=== PATIENT | female | born 1975 | race Caucasian/White ===

== ENCOUNTER 2021-04-25 10:57 | Outpatient (CLI) | payer MEDICAID, SELFPAY ==
--- NOTE | ~2021-04-25 | US_ITS ---
EXAMINATION: US pelvic complete w TV DATE: 04/25/2021 11:47 INDICATION: Excessive and frequent menstruation TECHNIQUE: Multiple transabdominal and endovaginal sonographic images of the pelvis were obtained. COMPARISON: None. FINDINGS: The uterus measures 8.9 x 5.4 x 4.0 cm. A nabothian cyst is noted in the cervix.. There ambreen ears to be a small myometrial calcification adjacent to the endometrial complex. The endometrial comp mariana measures 4 mm. The right ovary measures 2.8 x 2.1 x 1.8 cm. The left ovary measures 2.5 x 2.3 x 1 .7 cm. There is normal vascular flow in the ovaries. There is no free fluid in the pelvis. IMPRESSION: 1. No sonographic correlate for the patient's symptoms. Reviewed, dictated and finalized at location A. UTIVE ADMINISTRATIVE ASSISTANT
== END 2021-04-25 10:58 | disposition home or self-care (01) ==
LOC: ANHIMG 10:59
PROVIDERS: PCP Physician Assistant; Visit Provider Nurse Practitioner
DX: N92.1 Excessive and frequent menstruation with irregular cycle (principal)
CPT/HCPCS: 76830; 76856

== ENCOUNTER → 2021-05-02 02:20 | Outpatient (CLI) | payer MEDICAID, SELFPAY ==
[2021-05-02 11:50] LABS: SARS-CoV-2 RNA PCR Negative
== END ==
PROVIDERS: PCP Physician Assistant; Visit Provider Obstetrics & Gynecology Gynecology
DX: Z01.812 Encounter for preprocedural laboratory examination (principal); Z20.822 Contact with and (suspected) exposure to COVID-19
CPT/HCPCS: C9803; U0003; U0005

== ENCOUNTER 2021-05-05 00:54 | Day surgery (SDC) | payer MEDICAID, SELFPAY ==
[2021-05-01 09:21] VITALS: BMI 26.3
--- NOTE | 2021-05-01 09:30 | PC.NURSE ---
Report to the Outpatient Waiting Room, entrance under the green pavilion located off [facility], at time 0800 on date 05/05/21. OR Time: 1000. - You and your visitor will be asked a series of questions to screen for COVID 19 for your protection. - A mask is required within the hospital. One visitor will be allowed to accompany the patient into the hospital. Patients visitor will be instructed to remain with patient at all times or leave the building. We will allow the visitor to come back to the postoperative area when patient is ready. Preoperative COVID Testing Requirements: COVID TEST 05/02 @ 0930 No COVID Test needed if: (proof is required; if not received patient will have Rapid Test prior to entry) - Patient has received COVID Vaccine at least 14 days prior to procedure date or - Patient has positive COVID test result within last 90 days of surgery date. COVID Test needed if above criteria is not met If not COVID vaccinated a COVID test must be conducted within 72 hours of surgery and patient is asked to isolate self from time of testing until procedure. You will go to the [employer] [facility] for your COVID testing. The [employer] [facility] site is located at the corner of [address] [facility]. You will only be called if COVID results are positive and your surgeon may reschedule your elective surgery date. Patients may have clear liquids (water, carbonated beverages, clear teas, apple juice) until 3 hours prior to surgery with a maximum of 20 ounces. - No food from midnight until time of surgery Take the following medications with a SIP of water the morning of surgery: CITALOPRAM Medications to discontinue per physician: N/A Date to take last dose: N/A Please no make-up, nail welsh, hairspray, perfume, deodorant, or body powder the day of surgery. No jewelry (including any body piercings) or valuables the day of surgery, leave them at home. Please take a shower or bath the night before, or the morning of, surgery with an antibacterial soap. Wear comfortable, loose fitting clothing. - Jewelry must be removed prior to entering the operating room. Rings and piercings that are not removed may be cut off. - The hospital will not accept responsibility for valuables. - Please leave all valuables, including medications, at home the day of surgery. If you are going home after surgery, a licensed driver's education instructor must drive you home. - NO public transportation without another adult. - We recommend that an adult stay with you for 24 hours following discharge. - We also recommend that you do not drive, make important decision, drink alcoholic beverages, or take any drugs that were not prescribed by your health care provider for at least 24 hours after your discharge time. Follow any additional instructions given to you from your surgeon. Telephone instructions given to SUDHEER GIBBONS and asked if any additional questions and then verbalized understanding. Patient advised to call surgeon office or pre surgery nurse liaison [phone] if any additional questions.
--- NOTE | 2021-05-05 07:43 | WPDHPUPDATE1 ---
History and Physical Update Update Date/Time: 05/05/21 07:43 History and Physical has been reviewed, including an updated exam of the patient. There are NO changes in the patient's condition. Risks, benefits, and alternatives have been discussed and questions answered. Patient agrees to proceed with procedure.
--- NOTE | 2021-05-05 07:43 | PM.HPGS ---
History of Present Illness History of Present Illness Consent: Risks, benefits, and alternatives have been discussed and questions answered. Patient agrees to proceed with procedure. Chief complaint: menorrhagia, abnormal uterine bleeding Narrative: Renee Cervantes is a 45 year old female with a 1 year history of abnormal cycles. The patient has lost [id number] in the past year. Abnormal cycles are regular but prolonged and heavy. Pelvic ultrasound is normal and hemoglobin was 14.8. Was recommended to proceed with workup including D&C hysteroscopy. Risks of infection, bleeding, perforation, and fluid imbalance were reviewed. Possible pathology was also discussed. Patient voices understanding and agrees to proceed. Review of Systems Review of Systems: not repeated day of surgery; patient states no changes in status Constitutional: Constitutional: Reports night sweats PMFSH Past Medical History Medical History (Updated 05/05/21 @ 07:47 by Paradise Borges MD) (normal spontaneous vaginal delivery) X1 Surgical History Surgical History (Updated 05/05/21 @ 07:46 by Paradise Borges MD) History of ankle surgery History of X2 Status post appendectomy Status post tubal ligation Social History Social History Years smoked: 25 Smoking status: Current every day smoker Tobacco type: cigarettes Alcohol intake: current Alcohol use details: 2/MONTH Substance use: never Substance use type: does not use Living arrangements: with family Spiritual care concerns: No Meds Home Medications and Allergies Home Medications Medication Instructions Recorded Confirmed Type citalopram 20 mg PO DAILY 05/01/21 05/01/21 History Allergies Allergy/AdvReac Type Severity Reaction Status Date / Time No Known Allergies Allergy Unverified 05/01/21 09:20 Exam Const: General: healthy appearing and alert Orientation/consciousness: patient oriented x3 GI: GI Palp: Yes Soft to palpation, No Tenderness to palpation present (GI) and No Palpable mass present : External Female Exam: normal external appearance Speculum Exam - Vagina: normal appearance of the vagina and normal vaginal discharge Speculum Exam - Cervix: normal appearance of the cervix Bimanual exam- vagina & uterus: uterine size normal and consistency normal Bimanual Exam- Adnexa, other: normal adnexae and No adnexal tenderness Neuro: General: patient oriented x3 Assessment and Plan Assessment and plan (1) Menorrhagia: Code(s): N92.0 - Excessive and frequent menstruation with regular cycle Status: Acute Assessment and Plan: Plan to proceed with D&C hysteroscopy
[2021-05-05 08:13] VITALS: BP 126/72; PULSE 85; RESP 16; TEMP 36.1; O2SAT 100
[2021-05-05] MEDS: ACETAMINOPHEN 500 MG TABLET 1000 MG PO (08:21)
[2021-05-05] MEDS: LACTATED RINGERS 1,000 ML 30 ML IV CONT (08:32)
--- NOTE | 2021-05-05 08:56 | WPDANESEPPF ---
Anes - Initial Pre Proc Eval Procedure: Operation Date: 05/05/21 10:00 Proposed Procedures p Hysteroscopy Dilation and Curettage - Paradise Borges MD Date/Time: 05/05/21 08:56 Surgeon: Paradise Borges MD Pre Op Diagnosis: menorrhagia, abnormal uterine bleeding Patient Data Age: 45 Gender: F Height: 1.64 m Weight: 71.25 kg Last Vital Signs Temp 36.1 C L 05/05/21 08:13 Pulse 85 05/05/21 08:13 Resp 16 05/05/21 08:13 BP 126/72 05/05/21 08:13 Pulse Ox 100 05/05/21 08:13 Allergies Allergy/AdvReac Type Severity Reaction Status Date / Time No Known Allergies Allergy Unverified 05/05/21 08:19 Home Medications Medication Instructions Recorded Confirmed Type citalopram 20 mg PO DAILY 05/01/21 05/05/21 History Patient hx anesthesia problems: other (slow to awaken) Family hx anesthesia problems: none Results Review: All pre-operative results and documents have been reviewed as part of the pre-operative evaluation. [facility]LY [facility], [facility] Past Medical History Medical History Anxiety Hx of migraines Surgical History Surgical History History of ankle surgery History of X2 Status post appendectomy Status post tubal ligation Social History Social History Years smoked: 25 Smoking status: Current every day smoker Tobacco type: cigarettes Alcohol intake: current Alcohol use details: 2/MONTH Substance use: never Substance use type: does not use Living arrangements: with family Spiritual care concerns: No Anes - Eval Final PreProcedure Day of Procedure 05/05/21 08:56 Patient weight: overweight Heart: regular rate and rhythm Lungs: clear to auscultation Airway: Mallampati scale class II Neurological: alert and oriented Last oral intake: >/= 8 hours ASA classification: II Emergent: no Anesthetic plan: proceed Anesthesia type and monitoring: general GIVS and standard monitoring Results Review: All pre-operative results and documents have been reviewed as part of the pre-operative evaluation. Informed Consent: The patient's anesthetic plan and its attendant risks and benefits were discussed with the patient/family/POA. Questions were solicited and answers provided to the satisfaction of the patient/family/POA.
--- NOTE | 2021-05-05 10:04 | W.PM.PROC2 ---
Procedure Note - Detailed Date of Procedure 05/05/21 Pre-op Diagnosis menorrhagia, abnormal uterine bleeding Post-op Diagnosis same Procedure Performed D&C hysteroscopy with MyoSure resection Surgeon Paradise Borges MD Anesthesia MAC and local Findings Uterus sounds to 8cm. There is a polyp on the posterior left wall. The anterior and sidewall of the left and the anterior right are thickened. Description of Procedure The patient was taken to the operating room and placed under anesthesia in the dorsal lithotomy position. She was prepped and draped in the usual sterile fashion. [place] speculum was placed in the vagina and the cervix was grasped on the anterior lip with a tenaculum. The cervix is injected in each quadrant with 1% lidocaine. The uterus is sounded to 8cm. The diagnostic hysteroscope was placed with the stated findings. The MyoSure device is opened and placed. Under direct visualization the polyp and the thickened areas are excised. The hysteroscope was removed and the medium sharp curette used to curette the endometrium until a good uterine cry was noted in all areas all instruments are removed. Patient was taken to recovery in stable condition. Sponge, needle, and instrument counts are correct per the OR staff. Estimated Blood Loss 5 Drains No Packing No Pathology yes (Endometrial shavings and curettings) Complications No immediate complications Condition stable Disposition PACU
[2021-05-05 10:15] VITALS: BP 103/61; PULSE 93; RESP 16; O2SAT 98
[2021-05-05 10:45] VITALS: BP 103/61; PULSE 98; RESP 16
== END 2021-05-05 11:15 | disposition home or self-care (01) ==
PROVIDERS: PCP Physician Assistant; Visit Provider Obstetrics & Gynecology Gynecology
PROC: 0U5B8ZZ Destruction of Endometrium, Via Natural or Artificial Opening Endoscopic (ICD-10-PCS; CPT 58563; principal; 2021-05-05 10:00)
DX: N92.0 Excessive and frequent menstruation with regular cycle (principal); N84.0 Polyp of corpus uteri; N93.9 Abnormal uterine and vaginal bleeding, unspecified; F17.210 Nicotine dependence, cigarettes, uncomplicated; F41.9 Anxiety disorder, unspecified
CPT/HCPCS: 58558; 88305; A9270; J2250; J2405; J2704; J3010; J7030; J7120

== ENCOUNTER 2021-05-20 16:05 | Emergency (ER) | payer OTHER, SELFPAY ==
[2021-05-20 16:11] VITALS: BP 140/86; PULSE 87; RESP 12; TEMP 36.6; O2SAT 99
--- NOTE | 2021-05-20 16:20 | ED.GENADULT ---
HPI - General Adult General Chief complaint: Dental/Oral Stated complaint: Ear pain, Tooth ache Time Seen by Provider: 05/20/21 16:13 Source: patient Mode of arrival: ambulatory Limitations: no limitations History of Present Illness HPI narrative: 45 y/o female presented for c/o right ear pain and right upper dental pain. States ear pain started about 1 week ago and was a/w sinus congestion. For about 2 days endorses right upper dental pain and swelling. Hx dental abscess. She has been using antiseptic rinse and is scheduled with her dentist in 2 weeks. Denies associated headache, dizziness, nausea, vomiting, fever or chills. Related Data Home Medications Medication Instructions Recorded Confirmed citalopram 20 mg PO DAILY 05/01/21 05/05/21 Allergies Allergy/AdvReac Type Severity Reaction Status Date / Time No Known Allergies Allergy Unverified 05/05/21 08:19 Review of Systems Review of Systems: CONSTITUTIONAL: Denies body aches, fever, chills ENT: Denies rhinorrhea, congestion, sore throat Reports dental pain, ear pain CARDIOVASCULAR: Denies chest pain, palpitations RESPIRATORY: Denies cough or dyspnea. SKIN: Denies rash, itching, or wounds. MUSCULOSKELETAL: Denies myalgia. NEUROLOGIC: Denies headache, numbness, tingling, or weakness. [facility] Past Medical History Medical History Anxiety Hx of migraines Surgical History Surgical History History of ankle surgery History of X2 Status post appendectomy Status post tubal ligation Social History Social History Years smoked: 25 Smoking status: Current every day smoker Tobacco type: cigarettes Alcohol intake: current Alcohol use details: 2/MONTH Substance use: never Substance use type: does not use Gender identity (if verbalized by the patient): Female Sexual Orientation (if Verbalized by the Patient): Straight or Heterosexual Spiritual care concerns: No Comments At time of signature, I have reviewed and agree with nursing past medical, surgical, social and family history unless otherwise noted. Please see nursing chart for further information. There is no relevant family history pertinent to the presenting complaint Exam Narrative: GENERAL: Appears in pain, no acute distress. HEAD: Normocephalic, atraumatic. EYES: EOMI. No redness or drainage. Conjunctivae normal. ENT: Mucous membranes pink and moist. TM normal left, TM scarring noted on right, Throat normal. Uvula midline. right upper dental abscess lateral aspect at tooth #3, no fluctuance or active drainage NECK: Normal AROM. Supple. right superior cervical lymphadenopathy. CHEST: No respiratory distress. Clear to auscultation. HEART: Regular rate and rhythm. No murmur appreciated. ABDOMEN: Soft, nontender, nondistended, normal active bowel sounds. SKIN: Warm, dry, no rash. Normal skin turgor. NEURO: No focal deficits. Alert and oriented x3. Gait steady. Course Course Emergency Course: Patient is aware of diagnosis, understands and agrees to treatment plan. Anticipatory guidance given. Patient agrees to follow-up as directed and is aware of reasons to seek care at the emergency department. Portions of this record may have been created with voice recognition software Level of Care: Express Care Visit Vital Signs Vital signs: Vital Signs Temperature 97.9 F 05/20/21 16:11 Pulse Rate 87 05/20/21 16:11 Respiratory Rate 12 05/20/21 16:11 Blood Pressure 140/86 05/20/21 16:11 Pulse Oximetry 99 05/20/21 16:11 Temperature 97.9 F 05/20/21 16:11 Pulse Rate 87 05/20/21 16:11 Respiratory Rate 12 05/20/21 16:11 Blood Pressure 140/86 05/20/21 16:11 Pulse Oximetry 99 05/20/21 16:11 Medical Decision Making [facility] Narrative Medical decision making narrative: Red
== END 2021-05-20 16:27 | disposition home or self-care (01) ==
PROVIDERS: Emergency Provider Nurse Practitioner Family; PCP Physician Assistant
DX: K04.7 Periapical abscess without sinus (principal); F17.210 Nicotine dependence, cigarettes, uncomplicated; F41.9 Anxiety disorder, unspecified
CPT/HCPCS: 99213; G0463

== ENCOUNTER 2021-06-30 11:50 | Outpatient (CLI) | payer OTHER, SELFPAY ==
--- NOTE | ~2021-06-30 | XR_ITS ---
EXAMINATION: XR shoulder LT min 2V DATE: 06/30/2021 12:17 INDICATION: Left shoulder pain. Fall. TECHNIQUE: 4 views of left shoulder were obtained. COMPARISON: None. FINDINGS: Bone alignment is normal. No fracture. Glenohumeral joint is normal. There is mild acromioc lavicular joint osteoarthritis. IMPRESSION: 1. Mild left acromioclavicular joint osteoarthritis. Reviewed, dictated and finalized at location A.
== END 2021-06-30 11:51 | disposition home or self-care (01) ==
LOC: ANHIMG 11:53
PROVIDERS: PCP Physician Assistant; Visit Provider Physician Assistant
DX: M25.512 Pain in left shoulder (principal); M19.012 Primary osteoarthritis, left shoulder
CPT/HCPCS: 73030

== ENCOUNTER 2021-07-31 15:28 | Outpatient (CLI) | payer OTHER, SELFPAY ==
[2021-07-31 16:11] LABS: Hematocrit 41.7 % (37.0-47.0); Hemoglobin 13.9 g/dL (12.0-15.0); Mean Corpuscular HGB Conc 33.3 g/dl (32-36); Mean Corpuscular Hemoglobin 30.3 pg (26-34); Mean Corpuscular Volume 90.8 fl (80-100); Mean Platelet Volume 9.7 fl (7.4-10.4); Platelet Count Result 288 k/mm3 (150-375); Red Blood Count 4.59 M/mm3 (4.2-5.4); Red Cell Distribution Width 12.6 % (11.5-14.5); White Blood Count 9.1 K/mm3 (4.5-10.0)
== END 2021-07-31 15:29 | disposition home or self-care (01) ==
LOC: ANHLAB 15:31
PROVIDERS: PCP Physician Assistant; Visit Provider Nurse Practitioner
DX: N92.0 Excessive and frequent menstruation with regular cycle (principal)
CPT/HCPCS: 36415; 85027

== ENCOUNTER 2021-10-13 00:17 | Day surgery (SDC) | payer OTHER, SELFPAY ==
[2021-10-06 13:55] VITALS: BMI 26.8
--- NOTE | 2021-10-06 13:57 | PC.NURSE ---
Report to the Outpatient Waiting Room, entrance under the green pavilion located off [facility], at time _1215__ on date _10/13/21_. OR Time: _1415_. - You and your visitor will be asked a series of questions to screen for COVID 19 for your protection. - Only one visitor is allowed at this time. - The patient visitor is requested to leave or wait in car when not with patient. - A mask is required within the hospital. Patients may have clear liquids (water, carbonated beverages, clear teas, apple juice) until 3 hours prior to surgery with a maximum of 20 ounces. - No food from midnight until time of surgery - Infants may have breast milk until 4 hours before surgery, formula 6 hours prior to surgery. - Children will be allowed to drink immediately following surgery. If applicable, please bring a bottle or sippy cup to assist with drinking. Juice, water, soda, and popsicles are readily available. For infants on formula, please bring formula the day of surgery. Pacifiers are allowed. Take the following medications with a SIP of water the morning of surgery: _Citalopram___ Medications to discontinue per physician Date to take last dose Please no make-up, nail sammarinese, hairspray, perfume, deodorant, or body powder the day of surgery. No jewelry (including any body piercings) or valuables the day of surgery, leave them at home. Please take a shower or bath the night before, or the morning of, surgery with an antibacterial soap. Wear comfortable, loose fitting clothing. Children are encouraged to wear pajamas. - Jewelry must be removed prior to entering the operating room. Rings and piercings that are not removed may be cut off. - The hospital will not accept responsibility for valuables. - Please leave all valuables, including medications, at home the day of surgery. If you are going home after surgery, a licensed armored truck driver must drive you home. - NO public transportation without another adult. - We recommend that an adult stay with you for 24 hours following discharge. - We also recommend that you do not drive, make important decision, drink alcoholic beverages, or take any drugs that were not prescribed by your health care provider for at least 24 hours after your discharge time. For Pediatric surgeries, we recommend two adults accompany the child home (only one inside the building at this time). Follow any additional instructions given to you from your surgeon. If you or anyone in your household have experienced Covid symptoms in the past week, please notify your surgeon or the nurse liaison at the phone number below for possible testing. Telephone instructions given to _Patient_and asked if any additional questions and then verbalized understanding. Patient advised to call surgeon office or pre surgery nurse liaison [phone] if any additional questions.
--- NOTE | 2021-10-13 08:33 | WPDANESEPPF ---
Anes - Initial Pre Proc Eval Procedure: Operation Date: 10/13/21 14:15 Proposed Procedures p Hysteroscopy, with Nelda Endometrial Ablation - Paradise Borges MD Date/Time: 10/13/21 08:33 Surgeon: Paradise Borges MD Pre Op Diagnosis: menorrhagia Patient Data Age: 45 Gender: F Height: 1.65 m Weight: 73.03 kg Allergies Allergy/AdvReac Type Severity Reaction Status Date / Time No Known Allergies Allergy Unverified 10/13/21 11:57 Home Medications Medication Instructions Recorded Confirmed Type citalopram 20 mg tablet 20 mg PO DAILY 05/01/21 10/06/21 History ibuprofen 800 mg tablet 800 mg PO TID PRN pain #15 tabs 05/20/21 10/13/21 Rx Patient hx anesthesia problems: none Family hx anesthesia problems: none Results Review: All pre-operative results and documents have been reviewed as part of the pre-operative evaluation. [facility] Past Medical History Medical History (Updated 10/13/21 @ 09:13 by Paradise Borges MD) Anxiety Hx of migraines Status post hysteroscopy May of 2021 with multiple endometrial polyps Surgical History Surgical History History of ankle surgery History of X2 Status post appendectomy Status post tubal ligation Social History Social History Smoking packs per day: 0.5 Smoking cigarettes per day: 10.0 Years smoked: 16 Smoking pack-years: 8.00 Smoking status: Current every day smoker Tobacco type: cigarettes Alcohol intake: current Alcohol use details: 2 weekends a month Substance use: never Substance use type: does not use Living arrangements: with family Gender identity (if verbalized by the patient): Female Sexual Orientation (if Verbalized by the Patient): Straight or Heterosexual Spiritual care concerns: No Anes - Eval Final PreProcedure Day of Procedure 10/13/21 08:33 Patient weight: overweight Heart: regular rate and rhythm Lungs: clear to auscultation Airway: Mallampati scale class II Neurological: alert and oriented Last oral intake: >/= 8 hours ASA classification: II Emergent: no Anesthetic plan: proceed Anesthesia type and monitoring: general GIVS and standard monitoring Results Review: All pre-operative results and documents have been reviewed as part of the pre-operative evaluation. Informed Consent: The patient's anesthetic plan and its attendant risks and benefits were discussed with the patient/family/POA. Questions were solicited and answers provided to the satisfaction of the patient/family/POA.
--- NOTE | 2021-10-13 09:12 | P.HP_ITS ---
History of Present Illness History of Present Illness Consent: Risks, benefits, and alternatives have been discussed and questions answered. Patient agrees to proceed with procedure. Chief complaint: menorrhagia Narrative: Renee Cervantes is a 45 year old female with persistent menorrhagia. Patient underwent D&C hysteroscopy which had multiple polyps removed. Initially cycles were improved however the patient continues staff prolonged heavy cycles. Medic ation options were reviewed and due to history of side effects patient is elected to proceed with endometrial ablation. Risks of infection, bleeding, perforation, and failure were reviewed. Patient voices understanding and agrees to proceed. Review of Systems Constitutional: Constitutional: Reports excessive sweating and Reports night sweats PMFSH Past Medical History Medical History (Updated 10/13/21 @ 09:13 by Paradise Borges MD) Anxiety Hx of migraines Status post hysteroscopy May of 2021 with multiple endometrial polyps Surgical History Surgical History History of ankle surgery History of X2 Status post appendectomy Status post tubal ligation Social History Social History Smoking packs per day: 0.5 Smoking cigarettes per day: 10.0 Years smoked: 16 Smoking pack-years: 8.00 Smoking status: Current every day smoker Tobacco type: cigarettes Alcohol intake: current Alcohol use details: 2 weekends a month Substance use: never Substance use type: does not use Living arrangements: with family Gender identity (if verbalized by the patient): Female Sexual Orientation (if Verbalized by the Patient): Straight or Heterosexual Spiritual care concerns: No Meds Home Medications and Allergies Home Medications Medication Instructions Recorded Confirmed Type citalopram 20 mg tablet 20 mg PO DAILY 05/01/21 10/06/21 History ibuprofen 800 mg tablet 800 mg PO TID PRN pain #15 tabs 05/20/21 10/06/21 Rx Allergies Allergy/AdvReac Type Severity Reaction Status Date / Time No Known Allergies Allergy Unverified 10/06/21 13:45 Exam Const: General: healthy appearing and alert Orientation/consciousness: patient oriented x3 GI: GI Palp: Yes Soft to palpation, No Tenderness to palpation present (GI) and No Palpable mass present : External Female Exam: normal external appearance Speculum Exam - Vagina: normal appearance of the vagina and normal vaginal discharge Speculum Exam - Cervix: normal appearance of the cervix Bimanual exam- vagina & uterus: uterine size normal and consistency normal Bimanual Exam- Adnexa, other: normal adnexae and No adnexal tenderness Neuro: General: patient oriented x3 Assessment and Plan Assessment and plan (1) Menorrhagia: Code(s): N92.0 - Excessive and frequent menstruation with regular cycle Status: Acute Assessment and Plan: Plan to proceed with Nelda endometrial ablation
--- NOTE | 2021-10-13 09:12 | WPDHPUPDATE1 ---
History and Physical Update Update Date/Time: 10/13/21 09:12 History and Physical has been reviewed, including an updated exam of the patient. There are NO changes in the patient's condition. Risks, benefits, and alternatives have been discussed and questions answered. Patient agrees to proceed with procedure.
[2021-10-13 11:56] VITALS: BP 125/75; PULSE 80; RESP 20; TEMP 36.4; O2SAT 99
[2021-10-13] MEDS: ACETAMINOPHEN 500 MG TABLET 1000 MG PO (12:22)
[2021-10-13] MEDS: LACTATED RINGERS 1,000 ML 30 ML IV CONT (12:30)
[2021-10-13] MEDS: LIDOCAINE HCL 1% PF 30 ML VIAL INFILTRATE (13:57)
--- NOTE | 2021-10-13 14:08 | P.OP_ITS ---
Procedure Note - Detailed Date of Procedure 10/13/21 Pre-op Diagnosis menorrhagia Post-op Diagnosis Same Procedure Performed Nelda endometrial ablation Surgeon Paradise Borges MD Anesthesia MAC and Local Findings Uterus sounds to 8cm and appears grossly normal Description of Procedure The patient is taken to the operating room and placed under anesthesia in the dorsal lithotomy position. She was prepped and draped in the usual sterile fashion. [place] speculum was placed in the vagina and the cervix is grasped on the anterior lip with tenaculum. The cervix is injected with 1% lidocaine in each quadrant. Uterus is sounded to 8cm. The cervix is serially dilated to an 8 Hegar. The diagnostic hysteroscope was placed with no abnormalities. Hysteroscope was then removed and the Nelda device opened and placed with a 5cm setting. Cavity assessment passed on the 1st attempt. Treatment cycle lasted the full 2minutes. The device is removed and hysteroscope replaced with a good ablation effect noted. All instruments are removed. Sponge, needle, and instrument counts are correct per the OR staff. Patient is awakened from anesthesia and taken to recovery in stable condition. Estimated Blood Loss 5 Drains No Packing No Pathology None sent Complications No immediate complications Condition Stable Disposition PACU
[2021-10-13 14:12] VITALS: BP 139/83; PULSE 97; RESP 14; O2SAT 98
[2021-10-13 14:40] VITALS: BP 123/77; PULSE 75
[2021-10-13 15:00] VITALS: BP 118/76; PULSE 75
== END 2021-10-13 15:10 | disposition home or self-care (01) ==
PROVIDERS: PCP Physician Assistant; Visit Provider Obstetrics & Gynecology Gynecology
PROC: 0U5B8ZZ Destruction of Endometrium, Via Natural or Artificial Opening Endoscopic (ICD-10-PCS; CPT 58563; principal; 2021-10-13 14:15)
DX: N92.0 Excessive and frequent menstruation with regular cycle (principal); F17.210 Nicotine dependence, cigarettes, uncomplicated; F41.9 Anxiety disorder, unspecified
CPT/HCPCS: 58563; A9270; J2250; J2704; J3010; J7120

== ENCOUNTER 2023-02-12 08:36 | Emergency (ER) | payer OTHER, SELFPAY ==
--- NOTE | ~2023-02-12 | CT_ITS ---
EXAMINATION: CT abdomen pelvis w con DATE: 02/12/2023 10:14 INDICATION: Lower abdominal pain TECHNIQUE: Computed tomography (CT) of the abdomen and pelvis was performed with 100 cc Omnipaque 350 intravenous contrast. The dose-length product was 583.66 mGy-cm. Automated exposure control and iter ative reconstruction technique were employed. COMPARISON: CT dated 02/12/2023. FINDINGS: There is mild right hydronephrosis. No obstructing stone or mass. Mild left hydronephrosis. Lung bases are unremarkable. The liver, spleen, pancreas, adrenal glands. No renal stones. There are follicular changes in the ovaries. There is a septated cyst fundus of the uterus which may represent a septate uterus. Fatty infiltration of the liver. The spleen, pancreas, adrenal glands are unremark able. Small fat-containing umbilical hernia. IMPRESSION: 1. Septated cystic structure at the fundus which may represent the endometrium with septate uterus. C onsider correlation with ultrasound. Reviewed, dictated and finalized at location B. ADE OPERATOR IMPRESSION: 1. Septated cystic structure at the fundus which may represent the endometrium with septate uterus. Consider correlation with ultrasound.
[2023-02-12 08:44] VITALS: BP 161/94; PULSE 90; RESP 16; TEMP 36.4; O2SAT 100
--- NOTE | 2023-02-12 08:53 | ED.ABDPAIN ---
HPI - Abdominal Pain General Chief Complaint: Abdominal Pain Stated Complaint: abdominal pain Time Seen by Provider: 02/12/23 08:38 History of Present Illness HPI narrative: 47 y/o female presents with lower abdominal pain x 1 week that has increased over the past 2 days. patient denies fevers, urinary symptoms. patient states she has been constipated with no relief with dulcolax. patient has a hx of tubal ligation and appendectomy. patient denies any other symptoms Onset (ago): week(s) (1) Pain Consistency: intermittent Location: RLQ, LLQ and suprapubic Associated symptoms: nausea, vomiting and constipation Treatments prior to arrival: other (dulcolax) Related Data Home Medications Medication Instructions Recorded Confirmed citalopram 20 mg tablet 20 mg PO DAILY 05/01/21 10/06/21 Allergies Allergy/AdvReac Type Severity Reaction Status Date / Time No Known Allergies Allergy Unverified 10/13/21 11:57 Review of Systems Review of Systems: All systems reviewed & are unremarkable except as noted in HPI and below Gastrointestinal: Gastrointestinal: Reports abdominal pain, Reports constipation, Reports nausea and Reports vomiting PMFSH Past Medical History Medical History Anxiety Hx of migraines Status post hysteroscopy May of 2021 with multiple endometrial polyps Surgical History Surgical History History of ankle surgery History of X2 Status post appendectomy Status post tubal ligation Social History Social History Smoking packs per day: 0.5 Smoking cigarettes per day: 10.0 Years smoked: 16 Smoking pack-years: 8.00 Smoking status: Current every day smoker Tobacco type: cigarettes Alcohol intake: current Alcohol use details: 2 weekends a month Substance use: never Substance use type: does not use Living arrangements: with family Gender identity (if verbalized by the patient): Female Sexual Orientation (if Verbalized by the Patient): Straight or Heterosexual Spiritual care concerns: No Exam Const: General: healthy appearing, no acute distress and alert HENMT: Head: normal to inspection Ears: external ears normal Eyes: EOM: EOMs intact bilaterally Neck: Neck: normal visual inspection Chest: Chest palpation & inspection: normal inspection of the chest Resp: Effort & Inspection: normal respiratory effort Cardio: Rate: regular rate GI: GI Palp: Yes Tenderness to palpation present (GI) (LLQ, super-pubic, rlq) Auscultation: Hypoactive bowel sounds present Back/Spine/Pelvis: Back: no CVA tenderness Skin: General skin exam: normal color Neuro: General: patient oriented x3 Extrem: General: normal to inspection Psych: Mental Status: mental status grossly normal Course Course Emergency Course: will order labs, ua, ct scan to r/o obstruction ivfs and zofran 1033- CT scan negative beside septate uterus. patient given information on this and instructed to f/u with restaurant culinary manager. will treat patient for constipation and refer to GI as needed for recurrent constipation. patient states symptoms are better after medications. Reevaluation(s) Reevaluation #1: patient symptoms improved Vital Signs Vital signs: Vital Signs Temperature 36.4 C 02/12/23 08:44 Pulse Rate 90 02/12/23 08:44 Respiratory Rate 16 02/12/23 08:44 Blood Pressure 161/94 H 02/12/23 08:44 Pulse Oximetry 100 02/12/23 08:44 Oxygen Delivery Room Air 02/12/23 08:44 Temperature 36.4 C 02/12/23 08:44 Pulse Rate 90 02/12/23 08:44 Respiratory Rate 16 02/12/23 08:44 Blood Pressure 161/94 H 02/12/23 08:44 Pulse Oximetry 100 02/12/23 08:44 Oxygen Delivery Room Air 02/12/23 08:44 MDM - Abdominal Pain Differential Diagnosis Differential diagnosis: Likely constipation, diverticulitis, sm
[2023-02-12] MEDS: SODIUM CHLORIDE 0.9% IV 1,000 ML 999 ML IV CONT (09:25)
[2023-02-12] MEDS: ONDANSETRON INJ 4 MG/2 ML VIAL IV PUSH (09:26)
[2023-02-12] MEDS: KETOROLAC 30 MG/ML VIAL (*BKC) IV PUSH (09:26)
[2023-02-12 09:45] LABS: Appearance Urine Clear (Clear); Bilirubin Urine Negative (Negative); Blood Urine Negative (Negative); Color Urine Yellow (Yellow); Glucose Urine UA Negative (Negative); Ketones Urine Negative (Negative); Leukocyte Esterase Ur Negative LEU/UL (Negative); Nitrate Urine Negative (Negative); Protein Urine Negative (Negative); Urobilinogen Urine 0.2 mg/dL (<2.0)
[2023-02-12 09:46] LABS: Basophils Percent Auto 0.3 % (0.2-1.2); Eosinophils Absolute Auto 0.1 K/mm3 (0-0.3); Eosinophils Percent Auto 0.8 % (0-4.4); Hematocrit 42.7 % (37.0-47.0); Hemoglobin 14.8 g/dL (12.0-15.0); Immature Granulocyte Absolute 0.06 K/mm3 (0.00-0.031); Immature Granulocyte Percent A 0.5 % (0-0.5); Lymphocytes Absolute Auto 1.74 K/mm3 (0.9-3.2); Lymphocytes Percent Auto 13.9 % (18.3-44.2); Mean Corpuscular HGB Conc 34.7 g/dl (32-36); Mean Corpuscular Hemoglobin 31.6 pg (26-34); Mean Platelet Volume 9.8 fl (7.4-10.4); Monocytes Absolute Auto 0.6 K/mm3 (0.1-0.6); Monocytes Percent Auto 4.5 % (2.6-8.5); Platelet Count Result 315 k/mm3 (150-375); Red Blood Count 4.69 M/mm3 (4.2-5.4); Red Cell Distribution Width 11.4 % (11.5-14.5); White Blood Count 12.5 K/mm3 (4.5-10.0)
[2023-02-12 09:54] LABS: Add Urine Microscopic? NO
[2023-02-12 09:57] LABS: Alanine Aminotransferase 34 U/L (6-35); Albumin Level 4.4 g/dL (3.5-5.1); Alkaline Phosphatase 76 U/L (38-126); Anion Gap 9 mmol/L (8-16); Aspartate Amino Transferase 32 U/L (14-36); Bilirubin,Total 0.5 mg/dL (0.2-1.3); Blood Urea Nitrogen 19 mg/dL (7-17); Calcium 9.5 mg/dL (8.4-10.2); Carbon Dioxide 26 mmol/L (22-30); Chloride 100 mmol/L (98-107); Estimated CRCL calculation 118 ml/min; Estimated Glomerular Filt Rate > 60; Glucose 108 mg/dL (65-110); Lipase 77 U/L (23-300); Potassium 4.3 mmol/L (3.4-5.0); Sodium 135 mmol/L (137-145)
== END 2023-02-12 11:36 | disposition home or self-care (01) ==
PROVIDERS: Emergency Provider Nurse Practitioner Family; PCP Physician Assistant
DX: K59.00 Constipation, unspecified (principal); F17.210 Nicotine dependence, cigarettes, uncomplicated; R93.89 Abnormal findings on diagnostic imaging of other specified body structures
CPT/HCPCS: 36415; 74177; 80053; 81003; 83690; 85025; 96361; 96374; 96375; 99284; J1885; J2405; J7030; Q9967

== ENCOUNTER 2023-04-28 12:46 | Outpatient (CLI) | payer OTHER, SELFPAY ==
--- NOTE | ~2023-04-28 | US_ITS ---
EXAMINATION: US pelvic complete w TV DATE: 04/28/2023 14:54 INDICATION: Cyst, uterus. TECHNIQUE: Multiple transabdominal and transvaginal sonographic images of the pelvis were obtained. COMPARISON: Pelvis ultrasound 04/25/2021, CT abdomen and pelvis 02/12/2023 FINDINGS: TRANSABDOMINAL ULTRASOUND: The uterus measures 8.3 x 4.2 x 4.4 cm. There is no free fluid in the pelvis. TRANSVAGINAL ULTRASOUND: The endometrial complex measures 10 mm in thickness. There is a thin septum in the endometrial comple x, likely a synechia given the history of ablation. There is a 1.6 cm intramural fibroid. The right o vary measures 2.6 x 1.9 x 2.8 cm. The left ovary measures 2.5 x 2.3 x 2.3 cm. IMPRESSION: 1. Small uterine fibroid. 2. Uterine synechia. Reviewed, dictated and finalized at location E. ANCE MANAGER
== END 2023-04-28 12:47 | disposition home or self-care (01) ==
PROVIDERS: PCP Physician Assistant; Visit Provider Physician Assistant
DX: D25.1 Intramural leiomyoma of uterus (principal); N85.6 Intrauterine synechiae; N85.8 Other specified noninflammatory disorders of uterus
CPT/HCPCS: 76830; 76856

== ENCOUNTER 2023-05-26 11:25 | Outpatient (CLI) | payer OTHER, SELFPAY ==
--- NOTE | ~2023-05-26 | XR_ITS ---
EXAMINATION: XR abdomen/kub 1V INDICATION: Right lower quadrant pain TECHNIQUE: Supine views of the abdomen were obtained on three radiographs. COMPARISON: CT, 02/12/2023 FINDINGS: The bowel gas pattern is normal. No dilated loops of bowel are evident. There are phlebolit hs in the pelvis. Ovoid densities in the right lower quadrant likely reflect ingested medications. Sigrid ng bases are clear. There is a bone island of the right pubic symphysis. IMPRESSION: 1. No radiographic correlate for the patient's symptoms. Reviewed, dictated and finalized at location F.
== END 2023-05-26 11:26 | disposition home or self-care (01) ==
PROVIDERS: PCP Physician Assistant; Visit Provider Nurse Practitioner
DX: K58.1 Irritable bowel syndrome with constipation (principal); R19.4 Change in bowel habit
CPT/HCPCS: 74018

== ENCOUNTER 2023-11-12 11:23 | Emergency (ER) | payer OTHER, SELFPAY ==
--- NOTE | 2023-11-12 11:28 | ED.URI ---
HPI - URI/Sore Throat General Chief Complaint: Upper Respiratory Infection Stated Complaint: sore throat Time Seen by Provider: 11/12/23 11:29 Source: patient Mode of arrival: ambulatory Limitations: no limitations History of Present Illness HPI Narrative: Renee is a 47-year-old female patient presenting to the clinic today with complaints of sore throat for the past week. She reports she felt feverish yesterday. Was diagnosed with viral pharyngitis 4 days ago however states that her symptoms have not improved and feels as though her symptoms are getting worse. Was given steroid shot in the urgent care at that time and was also tested for COVID which was negative. MD elicited complaint: sore throat and nasal congestion Related Data Home Medications Medication Instructions Recorded Confirmed citalopram 20 mg tablet 20 mg PO DAILY 05/01/21 11/12/23 Allergies Allergy/AdvReac Type Severity Reaction Status Date / Time No Known Allergies Allergy Verified 11/12/23 11:28 Review of Systems Review of Systems: Pertinent positives per HPI. Patient denies any rash, headache, visual changes, dizziness, cough, shortness of breath, chest pain, palpitations, nausea, vomiting, diarrhea, constipation, abdominal pain, or any urinary issues. FOR[facility]LY [facility], [facility] Past Medical History Medical History Abnormality of uterine cervix Anxiety Change in bowel habits Foreign body Hx of migraines Irritable bowel syndrome with constipation LLQ cramping RLQ abdominal tenderness Status post hysteroscopy May of 2021 with multiple endometrial polyps Surgical History Surgical History History of ankle surgery History of X2 Status post appendectomy Status post tubal ligation Social History Social History Smoking packs per day: 0.5 Smoking cigarettes per day: 10.0 Years smoked: 16 Smoking pack-years: 8.00 Smoking status: Current every day smoker Tobacco type: cigarettes Alcohol intake: current Alcohol use details: 2 weekends a month Substance use: never Substance use type: does not use Living arrangements: with family Gender identity (if verbalized by the patient): Female Sexual Orientation (if Verbalized by the Patient): Straight or Heterosexual Spiritual care concerns: No Comments At the time of my signature, I reviewed and agree with the nursing past medical, surgical, social, and family history. There is no relevant family history pertinent to the patient complaint. Exam Narrative: General: Well-developed, well nourished, in no apparent distress Head: Normocephalic, atraumatic Eyes: Pupils equally round and reactive to light bilaterally, EOM intact, sclera and conjunctive clear, no discharge, lids normal Ears: TMs intact and clear, ear canals clear, no drainage, grossly hearing normal. Nose: Nares patent, no discharge, no inflammation, no sinus tenderness. Mouth: Oral pharynx red with bilateral tonsillar enlargement without lesions or masses, good dentition, MMM. Voice is muffled and patient has trismus, even rise and fall of uvula. Neck: Supple, trachea midline, enlargement of anterior cervical nodes, no thyroid masses or goiter palpable. Cardio: Regular rate and rhythm, s1 and s2 normal, no murmur appreciated. Resp: Clear to auscultation bilaterally, no rhonchi, rales, wheezing or rubs Course Course Emergency Course: Portions of this record may have been created with voice recognition software. Level of Care: Express Care Visit Vital Signs Vital signs: Vital signs reviewed MDM - URI/Sore Throat MDM Narrative Medical decision making narrative: At the time of visit patient is resting comfortably on the exam table. Patient appears to be nontoxic. Labs: Strep and mono testing was performed and were ne
[2023-11-12 11:31] VITALS: BP 151/90; PULSE 86; RESP 16; TEMP 37.2; O2SAT 99
[2023-11-12 12:11] LABS: EDMONONEGPOS Negative; EDSTREPNEGPOS1 Negative
== END 2023-11-12 11:54 | disposition home or self-care (01) ==
PROVIDERS: Emergency Provider Nurse Practitioner Family; PCP Physician Assistant
DX: J03.90 Acute tonsillitis, unspecified (principal); F17.210 Nicotine dependence, cigarettes, uncomplicated; F41.9 Anxiety disorder, unspecified
CPT/HCPCS: 36416; 86308; 87081; 87880; 99213; G0463